=== PATIENT | female | born 1985 | race Caucasian/White ===

== ENCOUNTER 2016-10-08 19:55 | Emergency (ER) | payer SELFPAY | END 2016-10-08 20:20 | disposition left against medical advice (07) | LOC: MADERS 19:55 | DX: Z53.21 Procedure and treatment not carried out due to patient leaving prior to being seen by health care provider (principal) ==

== ENCOUNTER 2017-12-24 23:57 | Emergency (ER) | payer MEDICAID, SELFPAY ==
[2017-12-25 01:17] LABS: #Basophils 0.1 thou/uL (0.0-0.2); #Eosinphils 0.3 thou/uL (0.0-0.7); #Lymphocytes 1.8 thou/uL (1.20-3.40); #Monocytes 0.6 thou/uL (0.11-0.59); %Basophils 0.6 % (0.0-1.0); %Eosinophils 2.7 % (0.0-10.0); %Neutrophils 76.8 % (42.0-75.0); Hemoglobin 11.2 g/dL (12.0-16.0); Mean Corpuscular HGB CONC 35.4 g/dL (32.0-36.0); Mean Corpuscular Hemoglobin 31.1 pg (27.0-31.0); Mean Corpuscular Volume 87.8 fl (81.0-99.0); Mean Platelet Volume 6.2 fL (7.4-10.4); Platelet Count 231 thou/uL (130-400); RBC Distribution Width 12.4 % (11.5-14.5); White Blood Cell (WBC) Count 11.8 thou/uL (4.8-10.8)
[2017-12-25 01:32] LABS: ALT (SGPT) 16 U/L (8-55); Albumin 3.9 g/dL (3.5-5.0); Alkaline Phosphatase 24 U/L (40-150); Calc. Creatinine Clearance 0 mL/min (70-130); Calcium 8.3 mg/dL (7.8-10.44); Chloride 109 mmol/L (98-107); Estimated GFR-MDRD 86; Globulin 2.6 g/dL (2.4-3.5); Protein, Total 6.5 g/dL (6.0-8.3); Sodium 138 mmol/L (136-145)
[2017-12-25 01:58] LABS: AST (SGOT) 23 U/L (5-34); BUN (Urea Nitrogen) 14 mg/dL (7.0-18.7); Bilirubin, Total 0.5 mg/dL (0.2-1.2); Carbon Dioxide 21 mmol/L (22-29); Glucose 93 mg/dL (70-105)
[2017-12-25 02:31] LABS: Clarity Clear (Clear); Glucose, Urine (Dipstick) Negative (Negative); Leukocyte Negative (Negative); Nitrite Negative (Negative); Protein, Urine (Dipstick) Negative (Neg-Trace)
[2017-12-25 02:32] LABS: Bacteria/HPF None Seen HPF (None Seen); Bilirubin Negative (Negative); Blood, Urine Negative (Negative); RBC/HPF 0-3 HPF (0-3); Urobilinogen 0.2 mg/dL (0.2-1.0); WBC/HPF 0-3 HPF (0-3)
[2017-12-25] MEDS ORDERED: Triple Antibiotic Oint 1 GM Packet ONE (03:10)
--- NOTE | 2017-12-25 07:15 | CT ---
FACIAL CT NONCONTRAST: INDICATIONS: Posttraumatic facial injury. FINDINGS: There is mild displacement of the bilateral nasal bones, compatible with fractures. Overlying nasal soft tissue prominence is seen. No displacement of the orbital flor or maxillary sinus flor. Ther e is no acute paranasal sinus fluid level seen. The zygomatic arches are intact. There is no posttr aumatic dislocation of either temporomandibular joint. IMPRESSION: Minimally displaced bilateral nasal bone fractures. POS: NISHANTK
--- NOTE | 2017-12-25 07:28 | RAD ---
NECK SOFT TISSUE RADIOGRAPH SERIES TWO VIEWS: INDICATIONS: Difficulty swallowing. FINDINGS: The prevertebral soft tissue stripe is normal in thickness. No abnormal hypopharyngeal distention. There is incidental degenerative change noted within the cervical spine. Mechanical artifact overlie s the upper paraspinous and skull base region. IMPRESSION: 1. No significant abnormal thickening of the prevertebral soft tissues. 2. The epiglottis is unremarkable, and the pre-epiglottic space is maintained. No abnormal hypophar yngeal distention. POS: NWK
== END 2017-12-25 03:18 | disposition home or self-care (01) ==
LOC: MADERS 23:57
DX: T74.11XA Adult physical abuse, confirmed, initial encounter (principal); S01.511A Laceration without foreign body of lip, initial encounter; S30.0XXA Contusion of lower back and pelvis, initial encounter; S20.222A Contusion of left back wall of thorax, initial encounter; S20.221A Contusion of right back wall of thorax, initial encounter; S00.11XA Contusion of right eyelid and periocular area, initial encounter; S10.93XA Contusion of unspecified part of neck, initial encounter; S60.222A Contusion of left hand, initial encounter; S60.221A Contusion of right hand, initial encounter; S90.32XA Contusion of left foot, initial encounter; S90.31XA Contusion of right foot, initial encounter; J45.909 Unspecified asthma, uncomplicated; F41.9 Anxiety disorder, unspecified; F17.210 Nicotine dependence, cigarettes, uncomplicated; Z79.899 Other long term (current) drug therapy; Y04.2XXA Assault by strike against or bumped into by another person, initial encounter
CPT/HCPCS: 36415; 70360; 70486; 80053; 81001; 85025; 87086